=== PATIENT | female | born 1930 | race Caucasian/White ===

== ENCOUNTER 2018-08-26 05:33 | Emergency (ER) | payer MEDICARE, OTHER ==
[2018-08-26 05:43] VITALS: BP 198/86
--- NOTE | 2018-08-26 06:11 | EDM.PDOC ---
ED HPI GENERAL MEDICAL PROBLEM - General Chief Complaint: Skin Complaint Stated Complaint: side pain Time Seen by Provider: 08/26/18 05:54 Source of Information: Reports: Patient, RN Notes Reviewed - History of Present Illness INITIAL COMMENTS - FREE TEXT/NARRATIVE: 88-year-old lady comes in with rash runs from her left low back to her left groin. Rashes more predominant as it comes around toward the left groin. Started with some burning discomfort and now the rash appearing. She thought maybe this was a "bite". No fever or chills. No chest discomfort or difficulty breathing. No cough sore throat nausea or vomiting. She does remember having chickenpox at a young age. Left Abdomen Pain Score (Numeric/FACES): 7 - Related Data Allergies Allergy/AdvReac Type Severity Reaction Status Date / Time Sulfa (Sulfonamide Allergy unknown Verified 05/18/14 17:32 Antibiotics) aspirin AdvReac Stomach Verified 05/18/14 17:32 Ache rosuvastatin calcium AdvReac Leg Cramps Verified 05/18/14 17:32 [From Crestor] Home Meds: Home Meds Cholecalciferol (Vitamin D3) [Vitamin D3] 1,000 unit PO DAILY 10/25/13 [History] Colesevelam HCl [Welchol] 3.75 gm PO DAILY 10/25/13 [History] Vit A,C & E/Lutein/Minerals [Healthy Eyes] 1 each PO DAILY 10/25/13 [History] Losartan [Cozaar] 50 mg PO DAILY 08/26/18 [History] Rosuvastatin [Crestor] 5 mg PO MOWEFR 08/26/18 [History] valACYclovir [Valtrex] 1,000 mg PO DAILY #20 tab 08/26/18 [Rx] Past Medical History Cardiovascular History: Reports: Cardiomyopathy, High Cholesterol, Hypertension - Past Surgical History GI Surgical History: Reports: Hernia Repair/Other Social & Family History - Family History Family Medical History: Noncontributory - Tobacco Use Smoking Status *Q: Never Smoker - Recreational Drug Use Recreational Drug Use: No ED ROS GENERAL - Review of Systems Review Of Systems: See Below Constitutional: Denies: Fever, Chills HEENT: Denies: Throat Pain Respiratory: Denies: Shortness of Breath Cardiovascular: Denies: Chest Pain GI/Abdominal: Denies: Abdominal Pain, Nausea, Vomiting Skin: Reports: Rash Neurological: Denies: Numbness, Tingling ED EXAM, SKIN/RASH Exam: See Below General Appearance: Alert, No Apparent Distress Throat/Mouth: Normal Inspection Head: Atraumatic. No: Facial Swelling Neck: Supple, Full Range of Motion Respiratory/Chest: No Respiratory Distress, Lungs Clear, Normal Breath Sounds Cardiovascular: Regular Rate, Rhythm GI/Abdominal: Non-Tender Back Exam: No: CVA Tenderness (L), CVA Tenderness (R) Extremities: No: Pedal Edema, Leg Pain Neurological: Alert, Oriented Skin: Warm, Dry, Rash (She has some small vesicular lesions scattered from left low back radiating to the left low flank toward the left groin. Rash is very typical for shingles.), Other (Skin is otherwise totally clear) Course - Vital Signs Last Recorded V/S: Last Vital Signs Temp 98.2 F 08/26/18 05:39 Pulse 58 L 08/26/18 05:39 Resp 18 08/26/18 05:39 BP 198/86 H 08/26/18 05:39 Pulse Ox 95 08/26/18 05:39 - Orders/Labs/Meds Meds: Medications Discontinued Medications Generic Name Dose Route Start Last Admin Trade Name Freq PRN Reason Stop Dose Admin Valacyclovir HCl 1,000 mg 08/26/18 06:07 Valtrex PO 08/26/18 06:08 ONETIME ONE - Re-Assessments/Exams Free Text/Narrative Re-Assessment/Exam: 08/26/18 06:17 When asked about needing medication for pain she states no, "I don't take pills ". He really does not take much medication other than for hypertension and vitamins. She feels that Tylenol will be plenty adequate to take as needed. Discharge instructions as documented. Departure - Departure Time of Disposition: 06:07 Disposition: Home, Self-Care 01 Condition: Fair Clinical Impression: Shingles Qualifiers: Herpes zoster complications: without complications Qualified Code(s): B02.9 - Zoster without complications - Discharge Information Prescriptions: valACYclovir [Valtrex] 1,000 mg PO DAILY #20 tab Referrals: Zahira Arciniega MD [Primary Care Provider] - Forms: ED Department Discharge Additional Instructions: Valacyclovir, antiviral medication to take 1000 mg 3 times daily for 1 week or until gone. You may take Tylenol or acetaminophen 500 mg every 6-8 hours for discomfort as needed. This will likely take about 2-3 weeks to run its course. Follow-up with Dr. Tsai as needed. Return to ED as needed if symptoms worsening in any way.
[2018-08-26] MEDS: valACYclovir 500 MG Tab PO ONE (06:17)
== END 2018-08-26 06:20 | disposition home or self-care (01) ==
LOC: JD.ED 05:33
DX: B02.9 Zoster without complications (principal); Z79.899 Other long term (current) drug therapy; Z88.2 Allergy status to sulfonamides; Z88.6 Allergy status to analgesic agent; Z88.8 Allergy status to other drugs, medicaments and biological substances
CPT/HCPCS: 99283; A9270

== ENCOUNTER 2018-08-28 11:34 | Emergency (ER) | payer MEDICARE, OTHER ==
[2018-08-28 11:55] VITALS: BP 187/160
--- NOTE | 2018-08-28 12:00 | EDM.PDOC ---
ED HPI GENERAL MEDICAL PROBLEM - General Chief Complaint: Neuro Symptoms/Deficits Stated Complaint: SENT BY DR. SU Time Seen by Provider: 08/28/18 11:50 Source of Information: Reports: Patient - History of Present Illness INITIAL COMMENTS - FREE TEXT/NARRATIVE: Patient arrives to emergency department by private vehicle for an episode of numbness and tingling to the left hand and left side of face this morning. A stroke code was called and patient was seen immediately. Patient states that she had discomfort after shopping at the grocery store, she went to open her car door and had some numbness/tingling and a little bit of weakness to her left first through third digits as well as some tingling to her left face/lips. Patient states that she did not feel weak anywhere else. No difficulty walking. No dizziness or lightheadedness. Denies change in vision. She does not feel her speech has changed, she drove herself to the clinic to see her primary provider who sent her here to the emergency department. The workup had been done. Patient states that she has been quite "jittery and anxious" lately as one of her best friends recently had a "stroke of the heart "and patient worries about her fair amount and she is not sure if she should be picking her up to take her with to activities or if that is too much for both her friend and the patient. Patient reports a history of hypertension and high cholesterol, is on medications for these. Her PCP is Dr. Su. Left Lower Abdomen Pain Score (Numeric/FACES): 6 - Related Data Allergies Allergy/AdvReac Type Severity Reaction Status Date / Time Sulfa (Sulfonamide Allergy unknown Verified 05/18/14 17:32 Antibiotics) aspirin AdvReac Stomach Verified 05/18/14 17:32 Ache rosuvastatin calcium AdvReac Leg Cramps Verified 05/18/14 17:32 [From Crestor] Home Meds: Home Meds Cholecalciferol (Vitamin D3) [Vitamin D3] 1,000 unit PO DAILY 10/25/13 [History] Colesevelam HCl [Welchol] 3.75 gm PO DAILY 10/25/13 [History] Vit A,C & E/Lutein/Minerals [Healthy Eyes] 1 each PO DAILY 10/25/13 [History] Losartan [Cozaar] 50 mg PO DAILY 08/26/18 [History] Rosuvastatin [Crestor] 5 mg PO MOWEFR 08/26/18 [History] valACYclovir [Valtrex] 1,000 mg PO DAILY #20 tab 08/26/18 [Rx] hydrOXYzine HCl [Vistaril] 25 mg PO Q8HR PRN #5 tab 08/28/18 [Rx] Past Medical History Cardiovascular History: Reports: Cardiomyopathy, High Cholesterol, Hypertension - Past Surgical History GI Surgical History: Reports: Hernia Repair/Other Social & Family History - Family History Family Medical History: Noncontributory ED ROS GENERAL - Review of Systems Review Of Systems: See Below Constitutional: Denies: Fever, Chills, Malaise, Weakness, Fatigue HEENT: Reports: No Symptoms Respiratory: Denies: Shortness of Breath, Wheezing, Cough Cardiovascular: Reports: Blood Pressure Problem. Denies: Chest Pain, Dyspnea on Exertion, Edema, Lightheadedness, Palpitations, Syncope Endocrine: Reports: No Symptoms GI/Abdominal: Reports: No Symptoms Skin: Reports: Other (Shingles to left abdomen and back) Neurological: Reports: Headache ("a little to my whole head"), Paresthesia, Tingling (left face x30 seconds this morning), Weakness (30 sec weakness and tingling to left 1-3rd digits this morning). Denies: Confusion, Dizziness, Numbness, Seizure, Syncope, Trouble Speaking, Difficulty Walking, Change in Speech, Gait Disturbance Psychiatric: Reports: Anxiety Hematologic/Lymphatic: Reports: No Symptoms ED EXAM, NEURO - Physical Exam Exam: See Below Exam Limited By: No Limitations General Appearance: Alert, WD/WN, No Apparent Distress, Anxious Eye Exam: Bilateral Eye: EOMI, Normal Inspection, PERRL Throat/Mouth: Normal Oropharynx Head Exam: Atraumatic, Normocephalic Neck: Normal Inspection, Supple, Non-Tender Respiratory/Chest: No Respiratory Distress, Lungs Clear, Normal Breath Sounds Cardiovascular: Normal Peripheral Pulses, Regular Rate, Rhythm, No Murmur GI/Abdominal: Normal Bowel Sounds, Soft, Tender (Tenderness to area of shingles rash) Neurological: Alert, Normal Mood/Affect, Normal Dorsiflexion, CN II-XII Intact, Normal Plantar Flexion, No Motor/Sensory Deficits, Oriented x 3 Psychiatric: Normal Affect, Normal Mood Skin Exam: Warm, Dry, Intact, Zoster-Like Rash EKG INTERPRETATION EKG Date: 08/28/18 Time: 12:15 Rhythm: NSR Rate (Beats/Min): 83 Course - Vital Signs Last Recorded V/S: Last Vital Signs Temp 97.1 F 08/28/18 11:54 Pulse 93 08/28/18 11:54 Resp 20 08/28/18 11:54 BP 187/160 H 08/28/18 11:54 Pulse Ox 99 08/28/18 11:54 - Orders/Labs/Meds Orders: Active Orders 24 hr Category Date Time Status EKG 12 Lead [EKG Documentation Completion] [RC] STAT Care 08/28/18 11:59 Active Labs: Laboratory Tests 08/28/18 08/28/18 08/28/18 Range/Units 11:50 11:57 11:57 WBC 6.52 (3.98-10.04) K/mm3 RBC 4.79 (3.98-5.22) M/mm3 Hgb 13.7 (11.2-15.7) gm/L Hct 41.5 (34.1-44.9) % MCV 86.6 (79.4-94.8) fl MCH 28.6 (25.6-32.2) pg MCHC 33.0 (32.2-35.5) g/dl RDW Std Deviation 40.8 (36.4-46.3) fL Plt Count 331 (182-369) K/mm3 MPV 10.3 (9.4-12.3) fl Neutrophils % (Manual) 55 (40-60) % Band Neutrophils % 3 (0-10) % Lymphocytes % (Manual) 26 (20-40) % Atypical Lymphs % 0 % Monocytes % (Manual) 12 H (2-10) % Eosinophils % (Manual) 4 (0.7-5.8) % Basophils % (Manual) 0 L (0.1-1.2) Toxic Granulation 1+ slight Platelet Estimate Adequate RBC Morph Comment Normal PT 10.4 (9.5-12.1) SECONDS INR 0.95 APTT 27 (24-31) SECONDS Sodium (136-145) mEq/L Potassium (3.5-5.1) mEq/L Chloride (98-107) mEq/L Carbon Dioxide (21-32) mEq/L Anion Gap (5-15) BUN (7-18) mg/dL Creatinine (0.55-1.02) mg/dL Est Cr Clr Drug Dosing mL/min Estimated GFR (MDRD) (>60) mL/min BUN/Creatinine Ratio (14-18) Glucose (83-115) mg/dL POC Glucose 88 (83-110) mg/dL Calcium (8.5-10.1) mg/dL Magnesium (1.8-2.4) mg/dl Total Bilirubin (0.2-1.0) mg/dL AST (15-37) U/L ALT (14-59) U/L Alkaline Phosphatase (46-116) U/L Troponin I (0.00-0.056) ng/mL C-Reactive Protein (<1.0) mg/dL Total Protein (6.4-8.2) g/dl Albumin (3.4-5.0) g/dl Globulin gm/dL Albumin/Globulin Ratio (1-2) TSH 3rd Generation (0.358-3.74) uIU/mL Urine Color (Yellow) Urine Appearance (Clear) Urine pH (5.0-8.0) Ur Specific Raven (1.005-1.030) Urine Protein (Negative) Urine Glucose (UA) (Negative) Urine Ketones (Negative) Urine Occult Blood (Negative) Urine Nitrite (Negative) Urine Bilirubin (Negative) Urine Urobilinogen (0.2-1.0) Ur Leukocyte Esterase (Negative) Urine RBC (0-5) /hpf Urine WBC (0-5) /hpf Ur Epithelial Cells (0-5) /hpf Urine Bacteria (FEW) /hpf Urine Mucus (FEW) /hpf 08/28/18 08/28/18 08/28/18 Range/Units 12:29 12:38 12:38 WBC (3.98-10.04) K/mm3 RBC (3.98-5.22) M/mm3 Hgb (11.2-15.7) gm/L Hct (34.1-44.9) % MCV (79.4-94.8) fl MCH (25.6-32.2) pg MCHC (32.2-35.5) g/dl RDW Std Deviation (36.4-46.3) fL Plt Count (182-369) K/mm3 MPV (9.4-12.3) fl Neutrophils % (Manual) (40-60) % Band Neutrophils % (0-10) % Lymphocytes % (Manual) (20-40) % Atypical Lymphs % % Monocytes % (Manual) (2-10) % Eosinophils % (Manual) (0.7-5.8) % Basophils % (Manual) (0.1-1.2) Toxic Granulation Platelet Estimate RBC Morph Comment PT (9.5-12.1) SECONDS INR APTT (24-31) SECONDS Sodium 140 (136-145) mEq/L Potassium 3.9 (3.5-5.1) mEq/L Chloride 107 (98-107) mEq/L Carbon Dioxide 20 L (21-32) mEq/L Anion Gap 16.9 H (5-15) BUN 14 (7-18) mg/dL Creatinine 1.0 (0.55-1.02) mg/dL Est Cr Clr Drug Dosing 31.94 mL/min Estimated GFR (MDRD) 53 (>60) mL/min BUN/Creatinine Ratio 14.0 (14-18) Glucose 91 (83-115) mg/dL POC Glucose (83-110) mg/dL Calcium 9.3 (8.5-10.1) mg/dL Magnesium 2.1 (1.8-2.4) mg/dl Total Bilirubin 0.3 (0.2-1.0) mg/dL AST 23 (15-37) U/L ALT 25 (14-59) U/L Alkaline Phosphatase 96 (46-116) U/L Troponin I < 0.017 (0.00-0.056) ng/mL C-Reactive Protein 0.5 (<1.0) mg/dL Total Protein 8.0 (6.4-8.2) g/dl Albumin 3.4 (3.4-5.0) g/dl Globulin 4.6 gm/dL Albumin/Globulin Ratio 0.7 L (1-2) TSH 3rd Generation 2.625 (0.358-3.74) uIU/mL Urine Color Yellow (Yellow) Urine Appearance Clear (Clear) Urine pH 6.5 (5.0-8.0) Ur Specific Raven 1.010 (1.005-1.030) Urine Protein Negative (Negative) Urine Glucose (UA) Negative (Negative) Urine Ketones Negative (Negative) Urine Occult Blood Trace-lysed H (Negative) Urine Nitrite Negative (Negative) Urine Bilirubin Negative (Negative) Urine Urobilinogen 0.2 (0.2-1.0) Ur Leukocyte Esterase 1+ H (Negative) Urine RBC 0-5 (0-5) /hpf Urine WBC 10-20 H (0-5) /hpf Ur Epithelial Cells 0-5 (0-5) /hpf Urine Bacteria Few (FEW) /hpf Urine Mucus Not seen (FEW) /hpf - Re-Assessments/Exams Free Text/Narrative Re-Assessment/Exam: Initial NIH score 0. Patient states symptoms have completely resolved. Still feeling anxious. POC glucose 88 08/28/18 12:08 CBC unremarkable. CMP with an elevated anion gap of 16.9, otherwise normal. Troponin is negative. CRP is 0.5, patient does have shingles. TSH is normal. Chest x-ray negative. CT head without contrast demonstrates mild symptoms change, nothing acute. MRI unavailable. The pressure much improved on recheck, patient is now more relaxed and not anxious. She recently had an increase in her blood pressure medication by her PCP. Discussed with patient the benefit of being admitted be observed for the next 24 hours. Certainly her symptoms sound like possible TIA, though she was quite anxious at the time as well. I do recommend that she can consider admission. Patient declines to be admitted for observation to the hospital. Patient is agreeable to return to the emergency department immediately if any symptoms and to follow up with her PCP on Friday. Patient continues to be completely asymptomatic. NIH score remains 0. Discussed the option of starting aspirin, she had side effect with this previously with GI upset. Recommend that she consider the enteric-coated aspirin. Patient will try the hydroxyzine when necessary for her anxiety symptoms, counseled patient on sedation effect with this and she verbalized understanding. She will return to emergency room for any new or worsening symptoms and agrees to follow-up with her PCP on Friday. 08/28/18 13:56 Departure - Departure Time of Disposition: 13:53 Disposition: Home, Self-Care 01 Condition: Good Clinical Impression: TIA (transient ischemic attack), Anxiety - Discharge Information Prescriptions: hydrOXYzine HCl [Vistaril] 25 mg PO Q8HR PRN #5 tab PRN Reason: Anxiety Instructions: Transient Ischemic Attack, [id number] Referrals: Zahira Arciniega MD [Primary Care Provider] - Forms: ED Department Discharge Additional Instructions: You were evaluated in the emergency department today for an episode of numbness and tingling. Your workup today was completely negative. Based on your description of the symptoms this possibly could've been a TIA or "mini stroke". There is a high chance of having a stroke after mini strokes of the option of being admitted to the hospital for observation is remains a possibility. As you declined and chose to go home, this is reasonable so long as you return to the emergency department for any worsening symptoms and follow up with your PCP on Friday for further evaluation. I sent the hydroxyzine for as needed use with anxiety to pharmacy, caution this may make you drowsy. I recommend that you consider trying the enteric-coated aspirin on a daily basis. - My Orders Last 24 Hours: My Active Orders 08/28/18 11:59 EKG 12 Lead [EKG Documentation Completion] [RC] STAT - Assessment/Plan Last 24 Hours: My Active Orders 08/28/18 11:59 EKG 12 Lead [EKG Documentation Completion] [RC] STAT
--- NOTE | 2018-08-28 12:36 | CT ---
Head CT Technique: Multiple axial sections through the brain were obtained. Intravenous contrast was not utilized. Comparison: Prior MRI brain of 11/30/12 is available. Findings: Ventricles along with basal cisterns and sulci over the convexities are mildly prominent. Mild diminished density is noted within portions of the periventricular white matter and subcortical white matter compatible with small vessel ischemic demyelination change. Several old lacunar infarcts are noted within the basal ganglia. No other abnormal parenchymal densities are seen. No evidence of intracranial hemorrhage. No midline shift or mass effect is seen. Bone window settings were reviewed which show the visualized sinuses to appear clear. No acute calvarial abnormality is seen. Incidental note of so-called empty sella which is a normal variant. Impression: 1. Mild senescent change as noted above. Other incidental finding. 2. Nothing acute is appreciated on noncontrast head CT exam. Diagnostic code #2
--- NOTE | 2018-08-28 12:49 | CR ---
Chest: Two views of the chest were obtained. Comparison: No prior chest x-ray. Heart size is normal. Tortuous thoracic aorta is seen. Lungs are clear with no acute parenchymal change. Scoliosis is noted within the spine. Impression: 1. Incidental finding. Nothing acute is seen. Diagnostic code #2
== END 2018-08-28 14:18 | disposition home or self-care (01) ==
LOC: JD.ED 11:34
DX: G45.9 Transient cerebral ischemic attack, unspecified (principal); F41.9 Anxiety disorder, unspecified; I10 Essential (primary) hypertension; E78.00 Pure hypercholesterolemia, unspecified; Z79.899 Other long term (current) drug therapy; Z88.6 Allergy status to analgesic agent; Z88.8 Allergy status to other drugs, medicaments and biological substances; Z88.2 Allergy status to sulfonamides
CPT/HCPCS: 36415; 70450; 70450-26; 71046; 71046-26; 80053; 81001; 82962; 83735; 84443; 84484; 85007; 85027; 85610; 85730; 86140; 93005; 99284-25

== ENCOUNTER 2020-03-09 11:20 | Emergency (ER) | payer MEDICARE, OTHER ==
[2020-03-09] MEDS ORDERED: Acetaminophen 325 MG Tab PO ONE (12:05)
--- NOTE | 2020-03-09 12:15 | EDM.PDOC ---
ED HPI GENERAL MEDICAL PROBLEM - General Chief Complaint: Headache Stated Complaint: STABBING HEAD PAINS Time Seen by Provider: 03/09/20 11:35 Source of Information: Reports: Patient, RN Notes Reviewed History Limitations: Reports: No Limitations - History of Present Illness INITIAL COMMENTS - FREE TEXT/NARRATIVE: Patient is an 89-year-old female who presents to the ED for the evaluation of her stabbing head pains. Patient notes this is been going on for the last 3 days. She notes these to be "zingers" on the left side of her face, along her cheekbone and above her eye. Patient states that there is tenderness to the area, and has appreciated mild swelling as well. Patient's daughter is a nurse, and was concerned about the possibility of a stroke versus Hansen's palsy versus other. Patient denies any sort of neurological symptoms, no garbled speech, no unilateral weakness, no blurred vision or double vision, there are no gait deficits or abnormalities. She does have a history of vertigo, shingles, a possible TIA roughly 1.5 years ago, and high blood pressure. Patient denies any fever/chills, cough/shortness of breath, nausea/vomiting/diarrhea. She did take 1000 mg Tylenol at around 7 AM this morning, and this did seem to help the pain. Patient states this is more pain on her face versus a headache. Patient states she did try to get in with her regular care provider, Dr. Tsai, but she was unable to obtain an appointment. Treatments OUTPATIENT PHYSICAL THERAPIST ASSISTANT: Reports: Acetaminophen Left Face/Facial Pain Score (Numeric/FACES): 5 - Related Data Allergies Allergy/AdvReac Type Severity Reaction Status Date / Time Sulfa (Sulfonamide Allergy unknown Verified 03/09/20 11:35 Antibiotics) aspirin AdvReac Stomach Verified 03/09/20 11:35 Ache rosuvastatin calcium AdvReac Leg Cramps Verified 03/09/20 11:35 [From [facility]] Home Meds: Home Meds Cholecalciferol (Vitamin D3) [Vitamin D3] 1,000 unit PO DAILY 10/25/13 [History] Acetaminophen/HYDROcodone [Godwin 325-5 MG] 1 tab PO Q6H PRN #15 tablet 03/09/20 [Rx] Metoprolol Succinate 25 mg PO DAILY 03/09/20 [History] Past Medical History HEENT History: Reports: Cataract, Impaired Vision Cardiovascular History: Reports: Cardiomyopathy, High Cholesterol, Hypertension Genitourinary History: Reports: Other (See Below) Other Genitourinary History: has urgency with 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: Musculoskeletal History: Reports: Other (See Below) Other Musculoskeletal History: right hip pain, had MRI 03/08/2020 Neurological History: Reports: TIA (possible TIA in 08/2018), Other (See Below) (shingles 07/2018) Psychiatric History: Reports: Anxiety Dermatologic History: Reports: Other (See Below) (shingles on abdomen 08/2018) - Infectious Disease History Infectious Disease History: Reports: Chicken Pox - Past Surgical History HEENT Surgical History: Reports: Cataract Surgery, Oral Surgery GI Surgical History: Reports: Hernia Repair/Other Female Surgical History: Reports: Hysterectomy Social & Family History - Family History Family Medical History: Noncontributory - Tobacco Use Smoking Status *Q: Never Smoker - Caffeine Use Caffeine Use: Reports: Coffee, Tea - Recreational Drug Use Recreational Drug Use: No ED ROS GENERAL - Review of Systems Review Of Systems: Comprehensive ROS is negative, except as noted in HPI. - Physical Exam Exam: See Below Exam Limited By: No Limitations General Appearance: Alert, WD/WN, No Apparent Distress Eye Exam: Bilateral Eye: EOMI, Normal Inspection, PERRL Ears: Normal External Exam Nose: Normal Inspection Throat/Mouth: Normal Inspection, Normal Lips, Normal Teeth, Normal Gums, Normal Oropharynx, Normal Voice, No Airway Compromise Head Exam: Atraumatic, Normocephalic, Facial Tenderness (noted to the left maxilla and left frontal region, these seems to come in waves) Neck: Normal Inspection, Supple, Non-Tender, Full Range of Motion Respiratory/Chest: No Respiratory Distress, Lungs Clear, Normal Breath Sounds, No Accessory Muscle Use, Chest Non-Tender Cardiovascular: Normal Peripheral Pulses, Regular Rate, Rhythm, No Murmur Neuro Exam (Abbreviated): Alert, Oriented, CN II-XII Intact (grossly), Normal Cognition, No Motor/Sensory Deficits Extremities: Normal Inspection, Normal Range of Motion, Normal Capillary Refill Psychiatric: Normal Affect, Normal Mood Skin Exam: Warm, Dry, Intact, Normal Color, No Rash Course - Vital Signs Last Recorded V/S: Last Vital Signs Temp 97.2 F 03/09/20 11:49 Pulse 77 03/09/20 11:49 Resp 18 03/09/20 11:49 BP 176/76 H 03/09/20 11:49 Pulse Ox 97 03/09/20 11:49 - Orders/Labs/Meds Labs: Laboratory Tests 03/09/20 03/09/20 03/09/20 Range/Units 12:34 12:34 12:34 WBC 6.83 (3.98-10.04) K/mm3 RBC 4.52 (3.98-5.22) M/mm3 Hgb 13.3 (11.2-15.7) gm/dl Hct 40.4 (34.1-44.9) % MCV 89.4 (79.4-94.8) fl MCH 29.4 (25.6-32.2) pg MCHC 32.9 (32.2-35.5) g/dl RDW Std Deviation 41.3 (36.4-46.3) fL Plt Count 334 (182-369) K/mm3 MPV 10.0 (9.4-12.3) fl Neut % (Auto) 57.8 (34.0-71.1) % Lymph % (Auto) 24.6 (19.3-51.7) % [place] % (Auto) 15.4 H (4.7-12.5) % Eos % (Auto) 2.0 (0.7-5.8) Baso % (Auto) 0.1 (0.1-1.2) % Neut # (Auto) 3.94 (1.56-6.13) K/mm3 Lymph # (Auto) 1.68 (1.18-3.74) K/mm3 [place] # (Auto) 1.05 H (0.24-0.36) K/mm3 Eos # (Auto) 0.14 (0.04-0.36) K/mm3 Baso # (Auto) 0.01 (0.01-0.08) K/mm3 ESR 25 H (0-20) mm/hr Sodium 134 L (136-145) mEq/L Potassium 4.4 (3.5-5.1) mEq/L Chloride 99 (98-107) mEq/L Carbon Dioxide 23 (21-32) mEq/L Anion Gap 16.4 H (5-15) BUN 19 H (7-18) mg/dL Creatinine 1.0 (0.55-1.02) mg/dL Est Cr Clr Drug Dosing 28.47 mL/min Estimated GFR (MDRD) 52 (>60) mL/min BUN/Creatinine Ratio 19.0 H (14-18) Glucose 92 (83-115) mg/dL Calcium 9.2 (8.5-10.1) mg/dL Magnesium 2.2 (1.8-2.4) mg/dl Total Bilirubin 0.5 (0.2-1.0) mg/dL AST 26 (15-37) U/L ALT 20 (14-59) U/L Alkaline Phosphatase 97 (46-116) U/L C-Reactive Protein (<1.0) mg/dL Total Protein 7.9 (6.4-8.2) g/dl Albumin 3.5 (3.4-5.0) g/dl Globulin 4.4 gm/dL Albumin/Globulin Ratio 0.8 L (1-2) 03/09/20 Range/Units 12:34 WBC (3.98-10.04) K/mm3 RBC (3.98-5.22) M/mm3 Hgb (11.2-15.7) gm/dl Hct (34.1-44.9) % MCV (79.4-94.8) fl MCH (25.6-32.2) pg MCHC (32.2-35.5) g/dl RDW Std Deviation (36.4-46.3) fL Plt Count (182-369) K/mm3 MPV (9.4-12.3) fl Neut % (Auto) (34.0-71.1) % Lymph % (Auto) (19.3-51.7) % [place] % (Auto) (4.7-12.5) % Eos % (Auto) (0.7-5.8) Baso % (Auto) (0.1-1.2) % Neut # (Auto) (1.56-6.13) K/mm3 Lymph # (Auto) (1.18-3.74) K/mm3 [place] # (Auto) (0.24-0.36) K/mm3 Eos # (Auto) (0.04-0.36) K/mm3 Baso # (Auto) (0.01-0.08) K/mm3 ESR (0-20) mm/hr Sodium (136-145) mEq/L Potassium (3.5-5.1) mEq/L Chloride (98-107) mEq/L Carbon Dioxide (21-32) mEq/L Anion Gap (5-15) BUN (7-18) mg/dL Creatinine (0.55-1.02) mg/dL Est Cr Clr Drug Dosing mL/min Estimated GFR (MDRD) (>60) mL/min BUN/Creatinine Ratio (14-18) Glucose (83-115) mg/dL Calcium (8.5-10.1) mg/dL Magnesium (1.8-2.4) mg/dl Total Bilirubin (0.2-1.0) mg/dL AST (15-37) U/L ALT (14-59) U/L Alkaline Phosphatase (46-116) U/L C-Reactive Protein 0.9 (<1.0) mg/dL Total Protein (6.4-8.2) g/dl Albumin (3.4-5.0) g/dl Globulin gm/dL Albumin/Globulin Ratio (1-2) Meds: Medications Discontinued Medications Generic Name Dose Route Start Last Admin Trade Name Freq PRN Reason Stop Dose Admin Acetaminophen 650 mg 03/09/20 12:05 03/09/20 12:21 Tylenol PO 03/09/20 12:06 650 mg NOW ONE Administration - Re-Assessments/Exams Free Text/Narrative Re-Assessment/Exam: 03/09/20 12:19 Patient presents to the ED for the evaluation of her left-sided facial pain. Di fferential: Temporal arteritis vs shingles vs trigeminal neuralgia. Have ordered 650 mg Tylenol for pain relief, labs and head CT to rule out any sort of worrisome abnormalities as the patient's daughter and the patient were requesting the head CT. Patient's blood pressure is mildly high at time of exam 176/60, and repeat blood pressures have been also within that range. We will continue to watch blood pressure at this time. 03/09/20 12:[address] has been performed, there is mild senescent changes noted as slight areas of diminished density noted with periventricular and subcortical white matter compatible with mild small vessel ischemic demyelination change. No other acute intracranial abnormalities appreciated. This was compared to head CT done on August 28, 2018. 03/09/20 13:29 Labs have resulted. CBC is unremarkable, metabolic panel is also within normal limits, and unremarkable. CRP and sed rate are still pending at this time. I do highly suspect that this is more likely due to postherpetic neuralgia in nature, as she did get some relief with the Tylenol. We will likely recommend using this and have her follow-up with Dr. Tsai next week if symptoms do not seem to be resolving. 03/09/20 13:51 Patient CRP is within normal limits at 0.9. Sed rate is mildly elevated at 25, but not worrisomely elevated. Patient was educated on disease course management. Patient's daughter was also educated and updated. They verbalized understanding at this time. Patient will be given a small amount of pain medication to take in case the Tylenol is not helping. Departure - Departure Time of Disposition: 13:30 Disposition: Home, Self-Care 01 Condition: Good Clinical Impression: Postherpetic trigeminal neuralgia - Discharge Information *PRESCRIPTION DRUG MONITORING PROGRAM REVIEWED*: No *COPY OF PRESCRIPTION DRUG MONITORING REPORT IN PATIENT GABRIEL: No Referrals: Zahira Arciniega MD [Primary Care Provider] - Forms: ED Department Discharge Additional Instructions: You were evaluated in the ED today for your left sided facial pains. This is most likely postherpetic trigeminal neuralgia, which is lingering nerve pain from the Shingles you had last year. The cause of this is unknown, and why it is bothering you now is still uncertain. This can however happen at anytime after you've had shingles. Your head CT was negative for any sign of stroke or other worrisome abnormalities within the brain. Your laboratory evaluation was within normal limits as well. You can take 500mg Tylenol (acetaminophen) or 600mg ibuprofen (Motrin/Advil) every 6 hours. Do not exceed 4000mg acetaminophen or 3200mg ibuprofen in a 24 hour time span. You were given a prescription for a strong pain medication, hydrocodone/acetaminophen 5/325mg, please take 1/2-1 tab every 6 hours as needed for pain not relieved by Tylenol or ibuprofen alone. Please note this medication does contain Tylenol in it, so do not take more than 4000 mg in a 24- hour time span. These medications can be addictive, so please take as few as possible to achieve adequate pain control. These meds can also be quite constipating, recommend that you increase your oral fluid intake and take a stool softener like MiraLAX while taking these medications. Do not drive while taking this medication. You should follow up with your primary care provider for a re-check of your symptoms and to make sure everything is getting better as expected. Please call their office to schedule an appointment for an ER follow-up sometime next week. Please return to the ED at anytime if your symptoms change or worsen. Sepsis Event Note (ED) - Evaluation Sepsis Screening Result: No Definite Risk - Focused Exam Vital Signs: Vital Signs Temp Pulse Resp BP Pulse Ox 03/09/20 11:49 97.2 F 77 18 176/76 H 97
--- NOTE | 2020-03-09 12:31 | CT ---
Head CT Technique: Multiple axial sections through the brain were obtained. Intravenous contrast was not utilized. Comparison: Prior head CT study of 08/28/18. Findings: Ventricles along with basal cisterns and sulci over the convexities are mildly prominent. Slight areas of diminished density are noted within the periventricular and subcortical white matter compatible with mild small vessel ischemic demyelination change. No other abnormal parenchymal densities are seen. No evidence of intracranial hemorrhage. No midline shift or mass-effect is seen. Bone window settings were reviewed. Visualized mastoid sinuses and paranasal sinuses show nothing acute. No acute calvarial abnormality is appreciated. Impression: 1. Mild senescent change as noted above. 2. No acute intracranial abnormality is appreciated. No appreciable change from previous study is seen. Diagnostic code #2 This report was dictated in MDT
[2020-03-09 14:14] VITALS: BP 188/76; PULSE 68
== END 2020-03-09 14:11 | disposition home or self-care (01) ==
LOC: JD.ED 11:20
DX: B02.22 Postherpetic trigeminal neuralgia (principal); I10 Essential (primary) hypertension; Z88.2 Allergy status to sulfonamides; Z88.6 Allergy status to analgesic agent; Z88.8 Allergy status to other drugs, medicaments and biological substances; Z90.710 Acquired absence of both cervix and uterus; Z79.899 Other long term (current) drug therapy
CPT/HCPCS: 36415; 70450; 80053; 83735; 85025; 85652; 86140; 99284; A9270; 99283

== ENCOUNTER 2021-08-20 11:51 | Emergency (ER) | payer MEDICARE, OTHER ==
[2021-08-20 12:20] VITALS: BP 206/87; PULSE 83
== END 2021-08-20 14:20 | disposition home or self-care (01) ==
LOC: JD.ED 11:51
DX: S22.31XA Fracture of one rib, right side, initial encounter for closed fracture (principal); M54.6 Pain in thoracic spine; E78.00 Pure hypercholesterolemia, unspecified; I10 Essential (primary) hypertension; Z86.73 Personal history of transient ischemic attack (TIA), and cerebral infarction without residual deficits; Z88.2 Allergy status to sulfonamides; Z88.8 Allergy status to other drugs, medicaments and biological substances; X50.0XXA Overexertion from strenuous movement or load, initial encounter
CPT/HCPCS: 71101-26-RT; 71101-RT; 72072; 72072-26; 99283-25; 99284